=== PATIENT | male | born 1930 | race Caucasian/White ===

== ENCOUNTER 2017-03-01 14:07 | Emergency (ER) | payer BC, MEDICARE, OTHER ==
[~2017-03-01] VITALS: Ht 185.4 cm; Wt 77.5 kg
[~2017-03-01 14:07] MED LIST: ALPH1000 PO; AMLO5TAB96 PO; ASCO500C PO; B COTAB3 PO; ECOT81TA2 PO; EZET10 PO; LASI20TA PO; METO25 PO; NITR0.4S SL; PERC5TAB12 PO; POTA-243 PO; PROS5TAB2 PO; RAPA8CAP PO; ROPI1TAB PO; SYNT75TA PO; TRAV0.00 EACH EYE
[2017-03-01 14:11] VITALS: BP 146/77; PULSE 70; RESP 18; TEMP 97.9; O2SAT 96
[2017-03-01] MEDS ORDERED: INSULIN HUMAN REGULAR 1,000 UNITS/10 ML VIAL IV PUSH ONE (14:45)
[2017-03-01] MEDS ORDERED: POTA1TAB4 PO (14:45)
[2017-03-01] MEDS ORDERED: TAMS5CAP PO (14:45)
[2017-03-01] MEDS ORDERED: TRAV0.00 EACH EYE (14:45)
[2017-03-01] MEDS ORDERED: AMLO2.5T PO (14:45)
[2017-03-01] MEDS ORDERED: INSULIN HUMAN REGULAR 1,000 UNITS/10 ML VIAL SQ ONE (14:45)
[2017-03-01] MEDS ORDERED: LEVO.15 PO (14:45)
[2017-03-01] MEDS ORDERED: METF500T PO (14:45)
[2017-03-01] MEDS ORDERED: LISI2.5T3 PO (14:45)
[2017-03-01] MEDS ORDERED: FURO1TAB62 PO (14:45)
[2017-03-01] MEDS ORDERED: SODIUM CHLOR 0.9% 1000 ML INJ 1,000 ML IV ONE (14:45)
[2017-03-01] MEDS ORDERED: PERC5TAB12 PO (14:45)
--- NOTE | 2017-03-01 14:45 | PD ---
HPI Chief Complaint: Diabetic Time Seen by Provider: 14:37 Travel History International Travel<30 days: No Contact w/Intl Traveler<30days: No Traveled to known affect area: No History of Present Illness HPI patient was recently diagnosed with diabetes and placed on metformin which cause diarrhea so he stopped and then recently restarted it, patient only knows that he takes two pills a day but can't recall doseage of pill. has had polyuria/polydipsia recently and home glucometer said hi (which is what it says if >600).....NO ALLEVIATING/AGGRAVATING FACTORS. DENIES ASSOC FACTORS OF CONRAD/CP/ ABDPAIN/BACKPAIN/N/V/D/ PFSH Past Medical History Hx Anticoagulant Therapy: No Asthma: No Anxiety: No Depression: No Heart Rhythm Problems: No Cancer: No Cardiovascular Problems: Yes High Cholesterol: Yes Chemotherapy: No Chest Pain: No Congestive Heart Failure: No COPD: No Diabetes: Yes Endocrine: No Genitourinary: No Hepatitis: No Hiatal Hernia: No Hypertension: Yes Immune Disorder: No Musculoskeletal: No Neurologic: No Psychiatric: No Reproductive: No Respiratory: Yes Radiation Therapy: No Sleep Apnea: No Thyroid Disease: No Past Surgical History Abdominal Surgery: Yes (BRIA.) Cholecystectomy: Yes Genitourinary Surgery: Yes (RIGHT NEPHROSTOMY) Oral Surgery: Yes (TONSILLECTOMY) Tonsillectomy: Yes Social History Alcohol Use: No Tobacco Use: No Substance Use: No Allergies-Medications (Allergen,Severity, Reaction): Coded Allergies: cetirizine (Unverified Allergy, Severe, Hives, 03/01/17) Reported Meds & Prescriptions Reported Meds & Active Scripts Active Reported Cod Liver Oil Softgel (Om3/Dha/Epa/Cod Liver Oil/A/D3) 240-1,000MG Capsule 2 Tab PO DAILY Zetia (Ezetimibe) 10 Mg Tab 10 Mg PO DAILY K-Tab (Potassium Chloride) 20 Meq Tab 20 Meq PO DAILY Amlodipine (Amlodipine Besylate) 2.5 Mg Tab 0 PO DAILY Flomax (Tamsulosin HCl) 0.4 Mg Cap 0.4 Mg PO HS Lasix (Furosemide) 20 Mg Tab 20 Mg PO DAILY Lisinopril 2.5 Mg Tab 0 PO DAILY Percocet (Oxycodone-Acetaminophen) 5-325 mg Tab 2 Tab PO Q4H PRN Synthroid (Levothyroxine Sodium) 150 Mcg Tab 150 Mcg PO DAILY Travatan Z Opth Drops (Travoprost) 0.004 % Soln 1 Drop EACH EYE HS Metformin (Metformin HCl) 500 Mg Tab 500 Mg PO BIDPC Review of Systems Except as stated in HPI: all other systems reviewed are Neg General / Constitutional: No: Fever Eyes: No: Visual changes HENT: No: Headaches Cardiovascular: No: Chest Pain or Discomfort Respiratory: No: Shortness of Breath Gastrointestinal: No: Abdominal Pain Genitourinary: No: Dysuria Musculoskeletal: No: Pain Skin: No Rash Neurologic: No: Weakness Psychiatric: No: Depression Endocrine: Positive: Polyuria, Polydipsia Hematologic/Lymphatic: No: Easy Bruising Physical Exam Narrative GENERAL: SKIN: Warm and dry. HEAD: Atraumatic. Normocephalic. EYES: Pupils equal and round. No scleral icterus. No injection or drainage. ENT: No nasal bleeding or discharge. Mucous membranes pink and moist. NECK: Trachea midline. No JVD. CARDIOVASCULAR: Regular rate and rhythm. RESPIRATORY: No accessory muscle use. Clear to auscultation. Breath sounds equal bilaterally. GASTROINTESTINAL: Abdomen soft, non-tender, nondistended. MUSCULOSKELETAL: Extremities without clubbing, cyanosis, or edema. No obvious deformities. NEUROLOGICAL: Awake and alert. No obvious cranial nerve deficits. Motor grossly within normal limits. Five out of 5 muscle strength in the arms and legs. Normal speech. PSYCHIATRIC: Appropriate mood and affect; insight and judgment normal. Data Data Last Documented VS Vital Signs Date Time Temp Pulse Resp B/P (MAP) Pulse Ox O2 Delivery O2 Flow Rate FiO2 03/01/17 16:39 85 18 97 Room Air 03/01/17 14:11 97.9 Orders Orders Electrocardiogram (03/01/17 14:37) Complete Blood Count With Diff (03/01/17 14:37) Comprehensive Metabolic Panel (03/01/17 14:37) Troponin I (03/01/17 14:37) Lipase (03/01/17 14:37) Chest, Single Ap (03/01/17 14:37) Iv Access Insert/Monitor (03/01/17 14:37) Ecg Monitoring (03/01/17 14:37) Oximetry (03/01/17 14:37) Sodium Chlor 0.9% 1000 Ml Inj (Ns 1000 M (1/13/18 14:45) Insulin Human Regular Inj (Novolin R Inj (03/01/17 14:45) Insulin Human Regular Inj (Novolin R Inj (03/01/17 14:45) Labs Laboratory Tests Test 03/01/17 14:35 White Blood Count 8.6 TH/MM3 Red Blood Count 4.40 MIL/MM3 Hemoglobin 13.4 GM/DL Hematocrit 40.5 % Mean Corpuscular Volume 92.1 FL Mean Corpuscular Hemoglobin 30.4 PG Mean Corpuscular Hemoglobin Concent 33.0 % Red Cell Distribution Width 12.7 % Platelet Count 218 TH/MM3 Mean Platelet Volume 10.3 FL Neutrophils (%) (Auto) 69.0 % Lymphocytes (%) (Auto) 16.1 % Monocytes (%) (Auto) 6.6 % Eosinophils (%) (Auto) 6.9 % Basophils (%) (Auto) 1.4 % Neutrophils # (Auto) 5.9 TH/MM3 Lymphocytes # (Auto) 1.4 TH/MM3 Monocytes # (Auto) 0.6 TH/MM3 Eosinophils # (Auto) 0.6 TH/MM3 Basophils # (Auto) 0.1 TH/MM3 CBC Comment DIFF FINAL Differential Comment Blood Urea Nitrogen 18 MG/DL Creatinine 1.30 MG/DL Random Glucose 564 MG/DL Total Protein 7.2 GM/DL Albumin 3.7 GM/DL Calcium Level 8.4 MG/DL Alkaline Phosphatase 115 U/L Aspartate Amino Transf (AST/SGOT) 16 U/L Alanine Aminotransferase (ALT/SGPT) 24 U/L Total Bilirubin 0.7 MG/DL Sodium Level 127 MEQ/L Potassium Level 4.5 MEQ/L Chloride Level 94 MEQ/L Carbon Dioxide Level 21.6 MEQ/L Anion Gap 11 MEQ/L Estimat Glomerular Filtration Rate 52 ML/MIN Troponin I LESS THAN 0.02 NG/ML Lipase 104 U/L [facility] Medical Decision Making Medical Screen Exam Complete: Yes Emergency Medical Condition: Yes Medical Record Reviewed: Yes Differential Diagnosis uti v pna v liver failure v kidney failure v Narrative Course NSR 77, RBBB, PVC NOTED. Critical Care Narrative REPEAT GLUCOSE HAS REDUCED NICELY DOWN TO 225 FROM NEARLY 600 GRADUALLY DURING PATIENTS OBSERVATION IN EMERGENCY DEPT. PATIENT HAS NO ACUTE SYMPTOMS AND IS TOLERATING PO, WILL BE D/C HOME. Diagnosis Primary Impression: HYPERGLYCEMIA Patient Instructions: Diabetic Hyperglycemia (ED), General Instructions Additional Instructions: PLEASE FOLLOW UP WITH YOUR PRIMARY CARE DOCTOR FOR FURTHER ADJUSTMENT OF YOUR DIABETIC MEDICATIONS Disposition: 01 DISCHARGE HOME Condition: Hiram Johnson MD Mar 01, 2017 14:45
[2017-03-01] MEDS ORDERED: EZET10 PO (14:46)
[2017-03-01] MEDS ORDERED: CODCAP6 PO (14:49)
[2017-03-01 14:50] VITALS: BP 140/69; PULSE 72; RESP 18; O2SAT 97
[2017-03-01 14:51] LABS: AUTOMATED NEUTROPHIL # 5.9 TH/MM3 (1.8-7.7); BASOPHIL # 0.1 TH/MM3 (0-0.2); BASOPHIL % 1.4 % (0.0-2.0); EOSINOPHIL # 0.6 TH/MM3 (0-0.4); EOSINOPHIL % 6.9 % (0.0-4.0); HEMATOCRIT 40.5 % (39.0-51.0); HEMOGLOBIN 13.4 GM/DL (13.0-17.0); LYMPH % 16.1 % (9.0-44.0); LYMPHOCYTE # 1.4 TH/MM3 (1.0-4.8); MEAN CELL VOLUME 92.1 FL (80.0-100.0); MEAN CORPUSCULAR HEMOGLOBIN 30.4 PG (27.0-34.0); MEAN PLATELET VOLUME 10.3 FL (7.0-11.0); MONO % 6.6 % (0.0-8.0); MONOCYTE # 0.6 TH/MM3 (0-0.9); PLATELET COUNT 218 TH/MM3 (150-450); RED CELL DISTRIBUTION WIDTH 12.7 % (11.6-17.2); WHITE BLOOD COUNT 8.6 TH/MM3 (4.0-11.0)
[2017-03-01 15:09] LABS: CHLORIDE 94 MEQ/L (98-107); SODIUM (NA) 127 MEQ/L (136-145)
--- NOTE | 2017-03-01 15:09 | RADRPT ---
EXAM DATE/TIME: 03/01/2017 14:44 [place] COMPARISON: CHEST SINGLE AP, June 10, 2014, 11:02. INDICATIONS : Weak, elevated blood sugar, not feeling well for 2 weeks MEDICAL HISTORY : None. SURGICAL HISTORY : None. ENCOUNTER: Initial ACUITY: 2 weeks PAIN SCORE: 0/10 LOCATION: Bilateral chest FINDINGS: A single view of the chest demonstrates the lungs to be symmetrically aerated without evidence of mas s, infiltrate or effusion. The cardiomediastinal contours are unremarkable. Osseous structures are stable the chronic degenerative changes in both shoulders consistent with chronic rotator cuff degene ration. CONCLUSION: No acute disease. Mark Urias MD on March 01, 2017 at 15:06 Board Certified Radiologist. This report was verified electronically.
[2017-03-01 15:12] LABS: CALCIUM 8.4 MG/DL (8.5-10.1)
[2017-03-01 15:13] LABS: ALBUMIN 3.7 GM/DL (3.4-5.0); BICARBONATE 21.6 MEQ/L (21.0-32.0); BLOOD UREA NITROGEN 18 MG/DL (7-18); LIPASE 104 U/L (73-393)
[2017-03-01 15:16] LABS: ALT (GPT) 24 U/L (12-78); AST (GOT) 16 U/L (15-37); GLOMERULAR FILTRATION RATE 52 ML/MIN (>89)
[2017-03-01 15:17] LABS: TOTAL BILIRUBIN ADULT 0.7 MG/DL (0.2-1.0); TOTAL PROTEIN 7.2 GM/DL (6.4-8.2)
[2017-03-01 16:04] LABS: ALKALINE PHOSPHATASE 115 U/L (45-117); TROPONIN I LESS THAN 0.02 NG/ML (0.02-0.05)
[2017-03-01 16:05] LABS: GLUCOSE,RANDOM 564 MG/DL (74-106)
[2017-03-01 16:39] VITALS: PULSE 85; RESP 18; O2SAT 97
[2017-03-01 16:57] VITALS: BP 135/70
--- NOTE | 2017-03-02 16:49 | EKG ---
Date Performed: 03/01/2017 Time Performed: 14:55:50 PTAGE: 86 years EKG: Sinus rhythm WITH FREQUENT VENTRICULAR PREMATURE COMPLEXES RIGHT BUNDLE BRANCH BLOCK LEFT ANTERIOR FASCICULAR BLO CK Since previous tracing, no significant change noted ABNORMAL ECG PREVIOUS TRACING : 06/11/2014 00.04 DOCTOR: John Mckoen Interpretating Date/Time 03/02/2017 16:47:48
== END 2017-03-01 17:06 | disposition home or self-care (01) ==
LOC: PHED 14:07
DX: R73.9 Hyperglycemia, unspecified (principal); E11.8 Type 2 diabetes mellitus with unspecified complications; Z79.84 Long term (current) use of oral hypoglycemic drugs; I10 Essential (primary) hypertension; R94.31 Abnormal electrocardiogram [ECG] [EKG]
CPT/HCPCS: 71045; 80053; 83690; 84484; 85025; 93005; 96360; 96372; 99285; J1815; J7030